=== PATIENT | female | born 1975 | race Caucasian/White ===

== ENCOUNTER 2019-07-10 00:49 | Day surgery (SDC) | payer BC, SELFPAY ==
[2019-07-08 14:27] VITALS: BMI 35.6
[2019-07-10 08:30] VITALS: BP 148/84; PULSE 78; RESP 16; TEMP 36.6; O2SAT 100; BMI 37.9
--- NOTE | 2019-07-10 08:48 | P.PNAN_ITS ---
Anes - Initial Pre Proc Eval Procedure: Operation Date: 07/10/19 09:30 Proposed Procedures p Esophagogastroduodenoscopy - Gus Hendrickson MD Date/Time: 07/10/19 08:48 Surgeon: Gus Hendrickson MD Pre Op Diagnosis: Epigastric Pain/ Gerd Patient Data Age: 44 Gender: F Height: 4 ft 11 in Weight: 80 kg Allergies Allergy/AdvReac Type Severity Reaction Status Date / Time Penicillins Allergy Mild Rash Unverified 07/08/19 14:25 BLUEBERRIES Allergy Severe Anaphylaxis Uncoded 07/08/19 14:36 DECONGESTANTS Allergy Mild Other Uncoded 07/08/19 14:36 Home Medications Medication Instructions Recorded Confirmed Type atorvastatin 10 mg PO DAILY 07/08/19 07/08/19 History cholecalciferol (vitamin D3) 2,000 unit PO DAILY 07/08/19 07/08/19 History [Vitamin D3] estradiol-norethindrone acet 1 tablet PO DAILY 07/08/19 07/08/19 History hydrochlorothiazide 25 mg PO DAILY 07/08/19 07/08/19 History loratadine [Claritin] 10 mg PO DAILY 07/08/19 07/08/19 History losartan 50 mg PO DAILY 07/08/19 07/08/19 History montelukast 10 mg PO DAILY 07/08/19 07/08/19 History Patient hx anesthesia problems: none Family hx anesthesia problems: none [facility] Past Medical History Medical History (Updated 07/10/19 @ 08:49 by Santosh Mi MD) Asthma Hyperlipidemia Hypertension Obesity Anes - Eval Final PreProcedure Day of Procedure 07/10/19 08:48 Patient weight: obese Heart: regular rate and rhythm Lungs: clear to auscultation Airway: Mallampati scale class III Neurological: alert and oriented Last oral intake: >/= 8 hours ASA classification: III Emergent: no Anesthetic plan: proceed Anesthesia type and monitoring: general GIVS and standard monitoring Informed Consent: The patient's anesthetic plan and its attendant risks and benefits were discussed with the patient/family/POA. Questions were solicited and answers provided to the satisfaction of the patient/family/POA.
[2019-07-10] MEDS: LACTATED RINGERS 1,000 ML 150 ML IV CONT (09:06)
--- NOTE | 2019-07-10 09:25 | WPDGICN ---
Assessment and Plan Additional Plan This is a 44-year-old white female patient seen in evaluation at the request of nurse practitioner Therese Tracy. She patient complains of right-sided and epigastric pain. This appears to worsen several hours after eating. She has acid regurgitation. Notes a sour taste in her mouth when reclining. The pain improves on taking Tums. Symptoms of worsened over the last 1-2 months. Patient has a history of GE reflux disease. She stopped her proton pump inhibitor in February of 2019. She states for many years had a good response to Prilosec. She stopped this medication for unspecified concerns. Current we she notes ongoing burping and regurgitation. Past medical history is significant for asthma. Hyperlipidemia. Hypertension. Obesity. Medications include atorvastatin. Hydrochlorothiazide. Claritin. Singulair. She has an allergy to penicillin. Family history is noncontributory. Physical exam reveals her to be alert. Vital signs stable. HEENT exam unremarkable. Lungs are clear to auscultation and percussion. Heart is without murmur or extra sounds. Abdominal exam is obese. Bowel sounds are present soft nontender with no hepatosplenomegaly. Digital external rectal exam is normal. Impression 1. GE reflux disease. Symptoms appear to have recurred on stopping her proton pump inhibitor. Plan is for EGD to assess current status of the upper GI tract. Also to determine necessity for remaining on proton pump inhibitors. Anti-reflux measures are encouraged. GI Consult Note Consult date/time: 07/10/19 09:26 HPI: Solange Walkre is a 44 year old female [facility] Past Medical History Medical History (Updated 07/10/19 @ 08:49 by Santosh Mi MD) Asthma Hyperlipidemia Hypertension Obesity Meds Home Medications and Allergies Home Medications Medication Instructions Recorded Confirmed Type atorvastatin 10 mg PO DAILY 07/08/19 07/08/19 History cholecalciferol (vitamin D3) 2,000 unit PO DAILY 07/08/19 07/08/19 History [Vitamin D3] estradiol-norethindrone acet 1 tablet PO DAILY 07/08/19 07/08/19 History hydrochlorothiazide 25 mg PO DAILY 07/08/19 07/08/19 History loratadine [Claritin] 10 mg PO DAILY 07/08/19 07/08/19 History losartan 50 mg PO DAILY 01/27/20 01/27/20 History montelukast 10 mg PO DAILY 07/08/19 07/08/19 History Allergies Allergy/AdvReac Type Severity Reaction Status Date / Time Penicillins Allergy Mild Rash Verified 07/10/19 08:59 BLUEBERRIES Allergy Severe Anaphylaxis Uncoded 07/10/19 08:59 DECONGESTANTS Allergy Mild Other Uncoded 07/10/19 08:59 Vital Signs Vital Signs - 24 hr 07/10/19 08:30 Temperature 36.6 C Pulse Rate 78 Respiratory Rate 16 Blood Pressure 148/84 H Pulse Oximetry 100
[2019-07-10 09:35] VITALS: BP 104/61; PULSE 89; RESP 18; O2SAT 99
[2019-07-10 09:45] VITALS: BP 114/70; PULSE 86; RESP 18; O2SAT 99
[2019-07-10 09:55] VITALS: BP 107/77; PULSE 81; RESP 18; O2SAT 99
== END 2019-07-10 10:14 | disposition home or self-care (01) ==
PROVIDERS: PCP Nurse Practitioner Family; Visit Provider Internal Medicine Gastroenterology
PROC: 0DJ08ZZ Inspection of Upper Intestinal Tract, Via Natural or Artificial Opening Endoscopic (ICD-10-PCS; CPT 43235; principal; 2019-07-10 09:30)
DX: K21.0 Gastro-esophageal reflux disease with esophagitis (principal); I10 Essential (primary) hypertension; E78.5 Hyperlipidemia, unspecified; J45.909 Unspecified asthma, uncomplicated; E66.9 Obesity, unspecified; Z68.37 Body mass index [BMI] 37.0-37.9, adult
CPT/HCPCS: 43235; J2704; J7120

== ENCOUNTER 2021-05-03 11:03 | Emergency (ER) | payer BC, SELFPAY ==
--- NOTE | ~2021-05-03 | XR_ITS ---
EXAMINATION: XR wrist RT min 3V DATE: 05/03/2021 11:39 INDICATION: Right wrist pain post fall TECHNIQUE: Posteroanterior, ulnar deviation, oblique, and lateral views of the right wrist were obtai dami. COMPARISON: none FINDINGS: 1-2 mm ulnar positive variance. Alignment is otherwise normal. No acute fracture. Suggestion of an ol d healed fracture at the fifth metacarpal diaphysis. Joint spaces are normal. Soft tissues are unrema rkable. IMPRESSION: 1. No acute osseous abnormality. Reviewed, dictated and finalized at location A. [facility]
[2021-05-03 11:23] VITALS: BP 151/106; PULSE 97; RESP 16; TEMP 37.1; O2SAT 100
--- NOTE | 2021-05-03 12:10 | ED.UPPEXIN ---
HPI - Extremity Injury (Upper) General Chief Complaint: Extremity Injury, Upper Stated Complaint: Rt Wrist pain Time Seen by Provider: 05/03/21 12:10 Source: patient Mode of arrival: ambulatory Limitations: no limitations History of Present Illness HPI narrative: Solange Walker is a 45 yo female with a PMH of high cholesterol, high blood pressure, GERD, who [facility] with complaints of right forearm pain and swelling after tripping over a curb transition last night, she scraped her left elbow, left knee, right forearm at the wrist is painful and swollen Related Data Home Medications Medication Instructions Recorded Confirmed atorvastatin 10 mg PO DAILY 07/08/19 07/08/19 cholecalciferol (vitamin D3) 2,000 unit PO DAILY 07/08/19 07/08/19 [Vitamin D3] estradiol-norethindrone acet 1 tablet PO DAILY 07/08/19 07/08/19 hydrochlorothiazide 25 mg PO DAILY 07/08/19 07/08/19 loratadine [Claritin] 10 mg PO DAILY 07/08/19 07/08/19 losartan 50 mg PO DAILY 07/08/19 07/08/19 montelukast 10 mg PO DAILY 07/08/19 07/08/19 Allergies Allergy/AdvReac Type Severity Reaction Status Date / Time Penicillins Allergy Mild Rash Verified 07/10/19 08:59 BLUEBERRIES Allergy Severe Anaphylaxis Uncoded 07/10/19 08:59 DECONGESTANTS Allergy Mild Other Uncoded 07/10/19 08:59 Review of Systems Review of Systems: CONSTITUTIONAL: Denies fever, chills, sweats. EYES: Denies visual changes, redness, discharge. ENT: Denies rhinorrhea, congestion, sore throat, otalgia. CARDIOVASCULAR: Denies chest pain, palpitations, edema. RESPIRATORY: Denies dyspnea, wheezing, cough GASTROINTESTINAL: Denies abdominal pain, nausea, vomiting, diarrhea. GENITOURINARY: Denies dysuria, hematuria, abnormal discharge SKIN: Denies rash or itching. NEUROLOGIC: Denies numbness, or focal weakness. PSYCHIATRIC: Denies anxiety or depression. Right forearm pain and swelling after fall PMFSH Past Medical History Medical History Asthma Hyperlipidemia Hypertension Obesity Social History Social History Smoking status: Never smoker Alcohol intake: current Drinks per week: 1 Substance use: never Comments At time of signature, I agree with nursing past medical, surgical, social and family history. There is no relevant family history pertinent to the presenting complaint. Exam Narrative: GENERAL: This is a well-nourished, well-developed patient, in mild distress. HEAD: normocephalic, atraumatic. EYES: Sclera clear/white. Vision is grossly intact. EARS: External ears normal, Hearing grossly intact. NOSE: External nose normal without nasal discharge, nares without redness, no rhinorrhea. THROAT: Mucous membranes moist, NECK: Neck supple, CARDIOVASCULAR: Regular rate and rhythm without murmurs, gallops, or rubs. RESPIRATORY: Clear to auscultation. Breath sounds equal bilaterally. No wheezes, rales, or rhonchi. GASTROINTESTINAL: Abdomen soft, SKIN: warm, intact with no suspicious lesions or rash, good texture and turgor. NEURO: awake, alert, and oriented to person, place and time. There were no obvious focal neurologic abnormalities. Steady gait EXTREMITIES: Right forearm pain and swelling is able to move fingers but pain with any kind of flexion extension BACK: Nontender without deformity Course Course Emergency Course: Patient comes with pain of the right forearm after fall states pain is in her lateral wrist X-ray of wrist shows 1 to 2 mm ulnar positive variance alignment is otherwise normal no acute fracture suggestion of old healed fracture car diastasis joint spaces normal soft tissue unremarkable Patient placed in Vinicio wrap and sling and given pain medication she is to gradually use wrist as pain tolerates Vital Signs Vital signs: Vital Signs Temperature 98.7 F 05/03/21 11:23 Pulse Rate 97 05/03/21 11:23 Respiratory Rate 16 05/03/21 1
== END 2021-05-03 12:28 | disposition home or self-care (01) ==
PROVIDERS: Emergency Provider Nurse Practitioner; PCP Nurse Practitioner Family
DX: S63.501A Unspecified sprain of right wrist, initial encounter (principal); S66.911A Strain of unspecified muscle, fascia and tendon at wrist and hand level, right hand, initial encounter; W18.09XA Striking against other object with subsequent fall, initial encounter; E78.00 Pure hypercholesterolemia, unspecified; I10 Essential (primary) hypertension; K21.9 Gastro-esophageal reflux disease without esophagitis; J45.909 Unspecified asthma, uncomplicated; E78.5 Hyperlipidemia, unspecified; E66.9 Obesity, unspecified; Z68.38 Body mass index [BMI] 38.0-38.9, adult
CPT/HCPCS: 73110; 99213; A4565; G0463

== ENCOUNTER 2024-11-25 07:06 | Outpatient (CLI) | payer BC, SELFPAY ==
--- NOTE | ~2024-11-25 | XR_ITS ---
Left ankle Technique: AP and lateral views were obtained. Clinical History: Pain Findings: No acute fracture or dislocation is seen. Osseous alignment is anatomic. Ankle mortise and other visualized joint spaces are preserved. Soft tissues are otherwise unremarkable. Impression: Unremarkable left ankle. Reviewed, dictated and finalized at location . Impression: Unremarkable left ankle.
--- NOTE | ~2024-11-25 | XR_ITS ---
Left wrist Technique: PA and lateral views were obtained. Clinical History: Pain Findings: No acute fracture or dislocation is seen. Osseous alignment is anatomic. Joint spaces are p reserved. Soft tissues are unremarkable. Impression: Unremarkable left wrist radiographs. Reviewed, dictated and finalized at location M. Impression: Unremarkable left wrist radiographs.
--- NOTE | ~2024-11-25 | XR_ITS ---
AP and oblique views of the SI joints CLINICAL HISTORY: Pain FINDINGS: SI joints and hip joints are unremarkable. No degenerative change, erosive change or sclero sis. No fracture or dislocation. Soft tissues are unremarkable. IMPRESSION: Unremarkable exam. Reviewed, dictated and finalized at location M. IMPRESSION: Unremarkable exam.
--- NOTE | ~2024-11-25 | XR_ITS ---
Right Hand Technique: PA and lateral views were obtained. Clinical History: Pain Findings: No acute fracture or dislocation is seen. Osseous alignment is anatomic. Joint spaces are p reserved. Soft tissues are unremarkable. Impression: Unremarkable right hand. Reviewed, dictated and finalized at location M. Impression: Unremarkable right hand.
--- NOTE | ~2024-11-25 | XR_ITS ---
Right wrist Technique: PA and lateral views were obtained. Clinical History: Pain Findings: No acute fracture or dislocation is seen. Osseous alignment is anatomic. Joint spaces are p reserved. Soft tissues are unremarkable. Impression: Unremarkable right wrist radiographs. Reviewed, dictated and finalized at location M. Impression: Unremarkable right wrist radiographs.
--- NOTE | ~2024-11-25 | XR_ITS ---
Right ankle Technique: AP and lateral views were obtained. Clinical History: Pain Findings: No acute fracture or dislocation is seen. Osseous alignment is anatomic. Ankle mortise and other visualized joint spaces are preserved. Soft tissues are otherwise unremarkable. Impression: Unremarkable right ankle. Reviewed, dictated and finalized at location . Impression: Unremarkable right ankle.
--- NOTE | ~2024-11-25 | XR_ITS ---
Left Hand Technique: PA and lateral views were obtained. Clinical History: Pain Findings: No acute fracture or dislocation is seen. Osseous alignment is anatomic. Joint spaces are p reserved. Soft tissues are unremarkable. Impression: Unremarkable left hand. Reviewed, dictated and finalized at location M. Impression: Unremarkable left hand.
== END 2024-11-25 07:07 | disposition home or self-care (01) ==
PROVIDERS: PCP Nurse Practitioner; Visit Provider Nurse Practitioner
DX: M25.50 Pain in unspecified joint (principal)
CPT/HCPCS: 72202; 73100; 73120; 73600; 73630